=== PATIENT | female | born 1945 ===

== ENCOUNTER 2021-08-02 10:53 | Emergency (ER) | payer MEDICARE ==
[~2021-08-02] VITALS: Ht 160 cm; Wt 57.7 kg
[2021-08-02 11:10] VITALS: BP 111/78
== END 2021-08-02 12:54 | disposition home or self-care (01) ==
LOC: ER 10:54
DX: Z00.00 Encounter for general adult medical examination without abnormal findings (principal); Z88.5 Allergy status to narcotic agent; W19.XXXA Unspecified fall, initial encounter; Y93.89 Activity, other specified; Y92.89 Other specified places as the place of occurrence of the external cause; Y99.8 Other external cause status
CPT/HCPCS: 99284

== ENCOUNTER 2022-05-13 10:23 | Emergency (ER) | payer MEDICARE ==
[~2022-05-13] VITALS: Ht 154.9 cm; Wt 63.6 kg
[~2022-05-13 10:23] MED LIST: ANAS1TAB10 PO; ATOR10TA70 PO; CELE-85 PO; DONE-46 PO; DONE10TA44 PO; OXYB-58 PO; SERT-433 PO
[2022-05-13 11:32] LABS: BASOPHILS % (AUTO) 0.4 % (0-1); EOSINOPHILS # (AUTO) 0.3 X10'3 (0-0.9); EOSINOPHILS % (AUTO) 2.8 % (0-6); HEMATOCRIT 41.8 % (35.0-45.0); HEMOGLOBIN 14.3 g/dl (12.0-16.0); LYMPHOCYTES # (AUTO) 0.8 X10'3 (1.1-4.8); LYMPHOCYTES % (AUTO) 7.3 % (21-51); MEAN CORPUSCULAR HEMOGLOBIN 31.2 PG (27.0-31.0); MEAN CORPUSCULAR HGB CONC 34.2 g/dL (33.0-36.5); MEAN CORPUSCULAR VOLUME 91.1 FL (78-98); MEAN PLATELET VOLUME 7.3 FL (7.4-10.4); MONOCYTES # (AUTO) 0.4 X10'3 (0-0.9); MONOCYTES % (AUTO) 3.7 % (2-12); NEUTROPHILS # (AUTO) 9.2 X10'3 (1.8-7.7); NEUTROPHILS % (AUTO) 85.8 % (42-75); PLATELET COUNT 121 X10'3 (140-440); RED BLOOD COUNT 4.59 X10'6 (4.20-5.60); RED CELL DISTRIBUTION WIDTH 13.8 % (11.5-14.5); WHITE BLOOD COUNT 10.7 X10'3 (4.5-11.0)
[2022-05-13 11:54] LABS: ALANINE AMINOTRANSFERASE 36 U/L (12-78); ALBUMIN 3.2 G/DL (3.4-5.0); ALBUMIN/GLOBULIN RATIO 0.8 (1.1-1.5); ALKALINE PHOSPHATASE 137 IU/L (46-116); ANION GAP 10 (8-16); ASPARTATE AMINO TRANSFERASE 26 U/L (10-37); BILIRUBIN,TOTAL 0.7 MG/DL (0.1-1.0); BLOOD UREA NITROGEN 18 MG/DL (7-18); BUN/CREATININE RATIO 21.2 (6.6-38.0); CALCIUM 9.3 MG/DL (8.5-10.1); CHLORIDE 107 MMOL/L (99-107); CREATININE 0.85 MG/DL (0.40-0.90); GLUCOSE 148 MG/DL (70-104); SODIUM 143 MMOL/L (135-145); TOTAL CARBON DIOXIDE 26.3 MMOL/L (24-32); TOTAL PROTEIN 7.2 G/DL (6.4-8.2); eGFR 65 ML/MIN
--- NOTE | 2022-05-13 12:36 | NUR ---
Patient is awake, alert and oriented to person. On room air, no form of distress noted. CTA. VSS. Monitoring ongoing
[2022-05-13] MEDS ORDERED: normal saline 1000ML IV soln IVB ONE (13:30)
--- NOTE | 2022-05-13 13:51 | NUR ---
Iv access placed. Ns infusing as ordered
[2022-05-13 14:38] LABS: CLARITY,URINE SLIGHTLY CLOUDY (Clear); COLOR,URINE YELLOW (Yellow); GLUCOSE, URINE NEGATIVE (Neg); KETONES,URINE NEGATIVE (Neg); LEUKOCYTE ESTERASE ,URINE MODERATE (Neg); NITRITES, URINE NEGATIVE (Neg); OCCULT BLOOD,URINE LARGE (Neg); PROTEIN,URINE 30 mg/dl (Neg); UROBILINOGEN,URINE 0.2 E.U/dL (0.2-1.0)
[2022-05-13 14:41] LABS: UA COLLECTION TYPE NON-SPECIFIED
[2022-05-13 14:51] LABS: BACTERIA,URINE 2+ /HPF (Neg); MUCUS STRANDS NONE SEEN /LPF (Neg); RBC,URINE 50-100 /HPF (0-2); SQUAMOUS EPITHELIAL CELL,UR MODERATE /LPF (FEW); WBC,URINE TNTC /HPF (0-4); YEAST MANY /HPF (NEGATIVE)
--- NOTE | 2022-05-13 15:17 | NUR ---
CALLED [facility] FOR TRANSPORT BACK TO [facility], [address]
[2022-05-13] MEDS ORDERED: CEPH250T PO ×2 (15:49→18:17)
[2022-05-13 19:40] VITALS: BP 148/70
== END 2022-05-13 19:44 | disposition home or self-care (01) ==
LOC: ER 10:23
DX: E86.0 Dehydration (principal); Z20.822 Contact with and (suspected) exposure to COVID-19; F03.90 Unspecified dementia, unspecified severity, without behavioral disturbance, psychotic disturbance, mood disturbance, and anxiety; N30.00 Acute cystitis without hematuria; Z88.5 Allergy status to narcotic agent; Z79.899 Other long term (current) drug therapy; Z79.82 Long term (current) use of aspirin
CPT/HCPCS: 36415; 71045; 80053; 81001; 83880; 84484; 85025; 87811; 93005; 99285; J7030

== ENCOUNTER 2022-05-18 13:27 | Emergency (ER) | payer MEDICARE ==
[~2022-05-18] VITALS: Ht 167.6 cm; Wt 55.0 kg
[~2022-05-18 13:27] MED LIST changes: +CEPH250T PO
[2022-05-18] MEDS ORDERED: normal saline 1000ML IV soln IVB ONE (14:35)
--- NOTE | 2022-05-18 15:00 | NUR ---
Pt awake, alert and only making some sounds. Hx of dementia. VSS. Iv access inserted to Rt ac
--- NOTE | 2022-05-18 15:05 | NUR ---
Dee catheter inserted. 600ml clear yellow urine obtained
--- NOTE | 2022-05-18 15:19 | NUR ---
Pt off to CT scan
--- NOTE | 2022-05-18 15:34 | NUR ---
Patient is now able to clearly state her name for me
[2022-05-18] MEDS ORDERED: azithromycin/NS 500mg/250ml 250 ML IV ONE (15:40)
[2022-05-18] MEDS ORDERED: CefTRIAXone/D5W-Rocephin 1gm 50 ML IV ONE (15:40)
[2022-05-18 16:02] LABS: BASOPHILS # (AUTO) 0.1 X10'3 (0-0.2); BASOPHILS % (AUTO) 0.7 % (0-1); EOSINOPHILS # (AUTO) 0.3 X10'3 (0-0.9); EOSINOPHILS % (AUTO) 3.4 % (0-6); HEMATOCRIT 42.9 % (35.0-45.0); HEMOGLOBIN 14.5 g/dl (12.0-16.0); LYMPHOCYTES # (AUTO) 1.2 X10'3 (1.1-4.8); LYMPHOCYTES % (AUTO) 13.7 % (21-51); MEAN CORPUSCULAR HEMOGLOBIN 30.3 PG (27.0-31.0); MEAN CORPUSCULAR HGB CONC 33.8 g/dL (33.0-36.5); MEAN CORPUSCULAR VOLUME 89.7 FL (78-98); MEAN PLATELET VOLUME 7.6 FL (7.4-10.4); MONOCYTES # (AUTO) 0.7 X10'3 (0-0.9); MONOCYTES % (AUTO) 7.9 % (2-12); NEUTROPHILS # (AUTO) 6.7 X10'3 (1.8-7.7); NEUTROPHILS % (AUTO) 74.3 % (42-75); PLATELET COUNT 154 X10'3 (140-440); RED BLOOD COUNT 4.78 X10'6 (4.20-5.60); RED CELL DISTRIBUTION WIDTH 13.9 % (11.5-14.5); WHITE BLOOD COUNT 9.1 X10'3 (4.5-11.0)
[2022-05-18 16:08] LABS: CLARITY,URINE CLEAR (Clear); COLOR,URINE YELLOW (Yellow); GLUCOSE, URINE NEGATIVE (Neg); KETONES,URINE NEGATIVE (Neg); LEUKOCYTE ESTERASE ,URINE TRACE (Neg); NITRITES, URINE NEGATIVE (Neg); OCCULT BLOOD,URINE SMALL (Neg); PROTEIN,URINE NEGATIVE (Neg); UROBILINOGEN,URINE 0.2 E.U/dL (0.2-1.0)
[2022-05-18 16:11] LABS: UA COLLECTION TYPE NON-SPECIFIED
[2022-05-18 16:12] LABS: BACTERIA,URINE 1+ /HPF (Neg); MUCUS STRANDS FEW /LPF (Neg); RBC,URINE 0-2 /HPF (0-2); SQUAMOUS EPITHELIAL CELL,UR FEW /LPF (FEW); WBC,URINE 0-4 /HPF (0-4)
[2022-05-18 16:13] LABS: ALANINE AMINOTRANSFERASE 20 U/L (12-78); ALBUMIN 3.3 G/DL (3.4-5.0); ALBUMIN/GLOBULIN RATIO 0.9 (1.1-1.5); ALKALINE PHOSPHATASE 150 IU/L (46-116); ANION GAP 9 (8-16); ASPARTATE AMINO TRANSFERASE 12 U/L (10-37); BILIRUBIN,TOTAL 0.7 MG/DL (0.1-1.0); BLOOD UREA NITROGEN 17 MG/DL (7-18); BUN/CREATININE RATIO 24.3 (6.6-38.0); CHLORIDE 106 MMOL/L (99-107); GLUCOSE 88 MG/DL (70-104); POTASSIUM 4.1 MMOL/L (3.5-5.1); SODIUM 143 MMOL/L (135-145); TOTAL CARBON DIOXIDE 28.5 MMOL/L (24-32); TOTAL PROTEIN 7.1 G/DL (6.4-8.2); eGFR 81 ML/MIN
[2022-05-18] MEDS ORDERED: LEVO500T90 PO (16:16)
--- NOTE | 2022-05-18 19:13 | NUR ---
GAVE REPORT TO TO [facility] MORA QUINONEZ. FULFILLMENT COORDINATOR IS ATTEMPTING TO ARRANGE TRANSPORTATION WITH [facility]
--- NOTE | 2022-05-18 19:57 | NUR ---
[facility] DOES NOT HAVE A FIELD TECHNICIAN. AGRICULTURAL LENDER WILL NOW ATTEMPT TO ARRANGE TRANSPORTATION WITH [facility].
[2022-05-18 20:37] VITALS: BP 134/68
== END 2022-05-18 21:34 ==
LOC: ER 13:27
DX: J18.9 Pneumonia, unspecified organism (principal); Z20.822 Contact with and (suspected) exposure to COVID-19; R33.9 Retention of urine, unspecified; R51.9 Headache, unspecified; R19.7 Diarrhea, unspecified; F03.90 Unspecified dementia, unspecified severity, without behavioral disturbance, psychotic disturbance, mood disturbance, and anxiety; I50.9 Heart failure, unspecified; Z88.5 Allergy status to narcotic agent; Z79.899 Other long term (current) drug therapy; Z79.82 Long term (current) use of aspirin
CPT/HCPCS: 36415; 70450; 71045; 80053; 81001; 83605; 85025; 87040; 87088; 87811; 93005; 96361; 96365; 96366; 96368; 99285; C1758; J0456; J0696; J7030; A4314; A4615